=== PATIENT | female | born 1990 ===

== ENCOUNTER 2020-10-27 15:57 | Inpatient (IN) | payer OTHER ==
[2020-10-27] MEDS ORDERED: LACTATED RINGERS 1,000 ML ONE (19:24)
[2020-10-27] MEDS ORDERED: TERBUTALINE 1 MG/1 ML INJ SUB-Q PRN (20:27)
[2020-10-27] MEDS ORDERED: MINERAL OIL 30 ML ORAL LIQD PO PRN (20:27)
[2020-10-27] MEDS ORDERED: ePHEDrine SULFATE 50 MG/1 ML INJ IV PRN (20:27)
[2020-10-27] MEDS ORDERED: OXYTOCIN DRIP 30 UNITS/500 ML BAG IV SCH ×2 (21:00)
[2020-10-27 21:02] LABS: Hematocrit 33.7 % (30.3-42.9); Hemoglobin 11.1 gm/dl (10.1-14.3); Mean Corpuscular HGB Conc 33 % (30-34); Mean Corpuscular Volume 85 fl (79-97); Platelet Count 153 K/mm3 (140-440); Red Blood Count 3.95 M/mm3 (3.65-5.03); Red Cell Distribution Width 14.3 % (13.2-15.2)
[2020-10-27] MEDS ORDERED: LIDOCAINE (2%) 20 MG/1 ML VIAL 20 ML MDV INFILTRATI ONE (21:27)
[2020-10-27] MEDS ORDERED: LACTATED RINGERS 1,000 ML IV SCH (21:30)
--- NOTE | 2020-10-27 21:49 | Anesthesia Consultation ---
Anesthesia Consult and Med Hx Date of service: 10/27/20 - Airway Anesthetic Teeth Evaluation: Good ROM Head & Neck: Adequate Mental/Hyoid Distance: Adequate Mallampati Class: Class II Intubation Access Assessment: Probably Good - Pulmonary Exam CTA: Yes - Cardiac Exam Cardiac Exam: RRR - Pre-Operative Health Status ASA Pre-Surgery Classification: ASA2 Proposed Anesthetic Plan: Epidural - Pulmonary Hx Smoking: No Hx Asthma: No Hx Respiratory Symptoms: No SOB: No COPD: No Home Oxygen Therapy: No Hx Pneumonia: No Hx Sleep Apnea: No - Cardiovascular System Hx Hypertension: No Hx Coronary Artery Disease: No Hx Heart Attack/AMI: No Hx Angina: No Hx Percutaneous Transluminal Coronary Angioplasty (PTCA): No Hx Cardia Arrhythmia: No Hx Pacemaker: No Hx Internal Defibrillator: No Hx Valvular Heart Disease: No Hx Heart Murmur: No Hx Peripheral Vascular Disease: No - Central Nervous System Hx Neuromuscular Disorder: No Hx Seizures: No CVA: No Hx Back Pain: No Hx Psychiatric Problems: No - Gastrointestinal Hx Ulcer: No Hx Gastroesophageal Reflux Disease: No - Endocrine Hx Renal Disease: No Hx End Stage Renal Disease: No Hx Cirrhosis: No Hx Liver Disease: No Hx Insulin Dependent Diabetes: No Hx Non-Insulin Dependent Diabetes: No Hx Thyroid Disease: No Hx Hypothyroidism: No Hx Hyperthyroidism: No - Hematic Hx Anemia: No Hx Sickle Cell Disease: No - Other Systems Hx Alcohol Use: No Hx Substance Use: No Hx Cancer: No Hx Obesity: No
[2020-10-27] MEDS ORDERED: NALOXONE 2 MG/2 ML INJ IV PRN (21:50)
--- NOTE | 2020-10-27 21:50 | Progress Note ---
Labor Epidural - Labor Epidural Start Time: 21:21 Stop Time: 21:32 Performed by:: ANTHONY GARDINER Procedure: Patient is requesting a laboring epidural for laboring pain. Patient IDed, H&P reviewed, all questions and concerns were answered, and consent was signed. Timeout was performed at bedside. Patient in sitting position. Sterile prep and drape was performed. [3] ml of 1% lidocaine skin wheal at L[3]- L [4]. 18- gauge Touhy epidural needle was advanced to loss of resistance with air technique 7cm. Negative CSF negative blood. Epidural catheter advanced to [10] centimeters. [NEGATIVE] Aspiration [NEGATIVE] test dose. Sterile dressing applied. Patient tolerated procedure.
[2020-10-27] MEDS ORDERED: fentaNYL-BUPIV 2 MCG/ML-0.125% 200 MCG/100 ML BAG EPIDURAL SCH (22:00)
[2020-10-27] MEDS: ePHEDrine SULFATE 50 MG/1 ML INJ IV PRN ×2 (22:34→22:59)
--- NOTE | 2020-10-27 22:35 | History and Physical Report ---
History of Present Illness Date of examination: 10/27/20 Date of admission: 10/27/20 15:57 Chief complaint: " I was sent for an induction" History of present illness: 30 y/o female presented to [facility] at 41 wks for an IOL r/t postdates. Pt denied vag bleeding or LOF and admitted to active FM. She initiated her pnc at [facility] at 6 6/7 wks. Pt states she had an uncomplicated preg. Med hx includes anemia. Surgical/social hx is unremar kable. Pt has a daughter whom was born deaf in one ear and a family hx of DM. Pt was admitted to L&D for an IOL. Labs: O pos AB screen neg Rubella I VDRL neg HIV neg, HBsAg neg MSAFP neg Pap wnl, GC/Chly neg UC neg Hgb 10.6:;1 hr GTT 171, 3 hr GTT wnl GBS neg Past History Past Medical History: other (anemia) Past Surgical History: no surgical history Family/Genetic History: diabetes, other (daughter deaf in one ear) Social history: no significant social history - Obstetrical History Expected Date of Delivery: 10/20/20 Actual Gestation: 41 Week(s) 0 Day(s) : 4 Para: 3 Hx # Term Pregnancies: 3 Number of Living Children: 3 Medications and Allergies Allergies Allergy/AdvReac Type Severity Reaction Status Date / Time No Known Allergies Allergy Verified 10/27/20 19:17 Home Medications Medication Instructions Recorded Confirmed Last Taken Type One Daily Tablet 1 tab PO DAILY 10/27/20 10/27/20 10/27/20 History Active Meds: Active Medications Ephedrine Sulfate (Ephedrine Sulfate 50 Mg/1 Ml Inj) 10 mg IV Q2M PRN PRN Reason: Hypotension Oxytocin/Sodium Chloride (Pitocin/Ns 30 Unit/500ml) 30 units in 500 mls @ 2 mls/hr IV TITR AC; Protocol Lactated Ringer's (Lactated Ringers) 1,000 mls @ 125 mls/hr IV DIRECT AC Oxytocin/Sodium Chloride (Pitocin/Ns 30 Unit/500ml) 30 units in 500 mls @ 40 mls/hr IV TITR AC; Protocol Fentanyl/Bupivacaine/Sodium Chlor (Fentanyl-Bupiv 2 Mcg/Ml-0.125%) 200 mcg in 100 mls @ 12 mls/hr EPIDURAL TITR AC; Protocol Mineral Oil (Mineral Oil 30 Ml Oral Liqd) 30 ml PO QHS PRN PRN Reason: Constipation Naloxone HCl (Naloxone 2 Mg/2 Ml Inj) 0.2 mg IV Q5M PRN PRN Reason: Respiratory sedation Terbutaline Sulfate (Terbutaline 1 Mg/1 Ml Inj) 0.25 mg SUB-Q ONCE PRN PRN Reason: Hyperstimulation/Hypertonicity Review of Systems All systems: negative Eyes: deferred Ears, nose, mouth and throat: deferred Breasts: normal Genitourinary: normal appearance - Vital Signs Vital signs: Vital Signs Pulse Pulse Ox 76 99 10/27/20 17:00 10/27/20 17:00 Temp Pulse Resp BP Pulse Ox 98.2 F 81 16 93/54 99 10/27/20 19:30 10/27/20 22:00 10/27/20 19:30 10/27/20 22:00 10/27/20 22:00 - Physical Exam Breasts: Positive: normal Abdomen: Positive: normal appearance, soft, normal bowel sounds, other (gravid) Genitourinary (Female): Positive: normal external genitalia, normal perenium Vulva: both: normal Vagina: Positive: normal moisture Uterus: Positive: enlarged, normal contour, other (gravid) Adnexa: both: normal Anus/Rectum: Positive: normal perianal skin Extremities: Positive: normal - Obstetrical FHR: category 1 Uterine Contraction Monitor Mode: External Cervical Dilatation: 4 Cervical Effacement Percentage: 70 station: -2 Uterine Contraction Frequency (min): q2-3 Uterine Contraction Pattern: Regular Uterine Tone Measurement Phase: Resting Uterine Contraction Intensity: Mild Results Result Diagrams: 10/27/20 20:25 All other labs normal. Assessment and Plan A: IUP @ 41 wks postdates Asymptomatic mild anemia P: Admit to L&D Continuous monitoring Pain med/ Epidural prn Anticipate - Patient Problems (1) Post-dates Current Visit: Yes Status: Acute
--- NOTE | 2020-10-28 01:37 | Procedure Note ---
OB Delivery Note - Delivery Date of Delivery: 10/28/20 Surgeon: JAMIE GANNON Estimated blood loss: <100cc - Vaginal Delivery presentation: vertex Delivery position: OA Intrapartum events: meconium, mult.variable deceleratio Delivery augmentation: pitocin Delivery monitor: external FHT, external uterine Route of delivery: Delivery placenta: spontaneous Delivery cord: nuchal cord, 3 umbilical vessels Episiotomy: none Delivery laceration: 1st degree, other (perineal) Delivery repair: vicryl Anesthesia: epidural Delivery comments: Called to for delivery SVE 10/100%/+1 and pt was pushing. of a live viable male in OA position. Nuchal cord x 1 was reduced over 's head and head and shoulders were delivered with ease. Light mec was noted. Infant was immediately placed on mom's chest for skin to skin bonding while NICU nurse dried and stimulated baby. Delayed cord clamping x 90 sec then cord was double clamped and FOB was allowed to cut the cord. was then carried to infant warmer by NICU nurse for an assess. 8/9. Spontaneous delivery of an intact placenta with 3CV. FF @ U2 with fundal massage and IV Pitocin. An exploration of tears revealed a 1st degree perineal lac which was repaired w/o problems with a 3-0 vicryl on a CT1. EBL approx 50cc. FW 3020 GMS. Mom and baby was left in stable condition with L&D nurse. - Infant A at 1 minute: 8 at 5 minutes: 9 Infant Gender: Male (FW 3020 GMS)
[2020-10-28] MEDS ORDERED: ONDANSETRON 4 MG/2 ML INJ IV PRN (01:39)
[2020-10-28] MEDS ORDERED: PROMETHAZINE 25 MG RECT SUPP PR PRN (01:39)
[2020-10-28] MEDS ORDERED: WITCH HAZEL/ GLYCERIN PAD TP PRN (01:39)
[2020-10-28] MEDS ORDERED: LANOLIN/ZINC/DIMETHICONE (LANSINOH) 7 GM TP PRN (01:39)
[2020-10-28] MEDS ORDERED: MAGNESIUM HYDROXIDE (MOM) ORAL LIQD UDC PO PRN (01:39)
[2020-10-28] MEDS ORDERED: PROMETHAZINE 25 MG TAB PO PRN (01:39)
[2020-10-28] MEDS ORDERED: diphenhydrAMINE 25 MG CAP PO PRN (01:39)
--- NOTE | 2020-10-28 02:04 | Post Anesthesia Evaluation ---
- Post Anesthesia Evaluation Patient Participated: Yes Airway Patent: Yes Stable Respiratory Function: Yes Nausea/Vomiting: No Temp > 96.8F: Yes Pain Manageable: Yes Adequeate Hydration: Yes Anesthesia Complications: No Block Receding Appropriately: Yes Patient on Ventilator: No
[2020-10-28] MEDS: IBUPROFEN 600 MG TAB PO SCH ×4 (04:52→21:55)
[2020-10-28] MEDS ORDERED: PRENATAL ONE DAILY PO SCH (10:00)
[2020-10-28] MEDS: PRENATAL VIT27-FE FUMARATE-FOLIC ACID VIT TAB PO SCH (11:53)
[2020-10-28 14:06] LABS: Hematocrit 32.2 % (30.3-42.9); Hemoglobin 10.8 gm/dl (10.1-14.3)
[2020-10-29] MEDS: IBUPROFEN 600 MG TAB PO SCH ×2 (05:55→13:42)
[2020-10-29] MEDS: PRENATAL VIT27-FE FUMARATE-FOLIC ACID VIT TAB PO SCH (09:09)
[2020-10-29 09:11] VITALS: BP 111/69
[2020-10-29] MEDS ORDERED: FERROUS SULFATE 325 MG TAB PO SCH (10:00)
--- NOTE | 2020-10-29 12:33 | Progress Note ---
Assessment and Plan A: day 1 S/P . Anemia. P: Continue oral iron supplementation. Anticipate discharge home tomorrow if patient continues to do well. Subjective - Subjective Date of service: 10/29/20 Principal diagnosis: day 1 S/P Patient reports: appetite normal, voiding normally, pain well controlled, flatus, ambulating normally, no dizzy ambulation, no nauseated : doing well Objective - Vital Signs Latest vital signs: Vital Signs Temp Pulse Resp BP Pulse Ox 10/29/20 08:27 97.8 F 89 18 111/69 98 10/29/20 01:37 98.6 F 81 18 101/58 99 10/28/20 21:55 18 10/28/20 16:58 98.5 F 75 18 108/67 98 10/28/20 13:11 84 139/92 99 10/28/20 13:03 98.9 F 77 8 L 99/61 98 Intake and Output 10/28/20 10/29/20 10/29/20 23:59 07:59 15:59 Intake Total 1080 240 Balance 1080 240 Intake: Oral 600 Intake, Free Water 480 240 Other: Total, Intake Amount 600 # Voids Void 2 2 # Bowel Movements 1 - Exam Cardiovascular: Present: Regular rate Lungs: Present: Clear to auscultation Abdomen: Present: normal appearance, soft, normal bowel sounds. Absent: distention, tenderness, guarding, rigidity Uterus: Present: normal, firm, fundal height below umbilicus. Absent: bogginess, tenderness Extremities: Present: normal. Absent: tenderness, edema
--- NOTE | 2020-10-29 15:56 | Discharge Summary ---
Providers - Providers Date of Admission: 10/27/20 15:57 Date of discharge: 10/29/20 Attending physician: MOHIT NINA JR, MD Primary care physician: MOHIT NINA JR, MD Hospitalization Reason for admission: induction of labor Delivery: Episiotomy: none Laceration: 1st degree Other procedures: none complications: none Discharge diagnosis: IUP at term delivered [place] baby: male Pertinent studies: Labs Hospital course: Normal course. Condition at discharge: Good Disposition: DC-01 TO HOME OR SELFCARE - Discharge Diagnoses (1) Term delivered Status: Acute (2) Anemia Status: Acute Plan - Provider Discharge Summary Activity: routine, no sex for 6 weeks, no heavy lifting 4 weeks, no strenuous exercise Diet: routine Instructions: routine Additional instructions: Continue taking your vitamins and iron supplements at home. Call your doctor immediately for: * Fever > 100.5 * Heavy vaginal bleeding ( >1 pad per hour) * Severe persistent headache * Shortness of breath * Reddened, hot, painful area to leg or breast - Follow up plan Follow up: MOHIT NINA JR, MD [Primary Care Provider] - 6 Weeks Forms: [facility] Discharge Summary, Discharge Signature Page
== END 2020-10-29 16:21 | disposition home or self-care (01) | DRG 807 ==
LOC: LD 15:57 → OB 10-28 05:24
PROVIDERS: ADMIT Obstetrics & Gynecology; ATTEND Obstetrics & Gynecology
PROC: 10E0XZZ Delivery of Products of Conception, External Approach (ICD-10-PCS; principal; 2020-10-27)
PROC: 3E0R3BZ Introduction of Anesthetic Agent into Spinal Canal, Percutaneous Approach (ICD-10-PCS; 2020-10-27)
PROC: 00HU33Z Insertion of Infusion Device into Spinal Canal, Percutaneous Approach (ICD-10-PCS; 2020-10-27)
PROC: 0HQ9XZZ Repair Perineum Skin, External Approach (ICD-10-PCS; 2020-10-27)
DX: O48.0 Post-term pregnancy (principal); Z37.0 Single live birth; O77.0 Labor and delivery complicated by meconium in amniotic fluid; O76 Abnormality in fetal heart rate and rhythm complicating labor and delivery; O99.02 Anemia complicating childbirth; Z20.822 Contact with and (suspected) exposure to COVID-19; Z3A.41 41 weeks gestation of pregnancy; O70.0 First degree perineal laceration during delivery; Z82.49 Family history of ischemic heart disease and other diseases of the circulatory system; Z79.899 Other long term (current) drug therapy
CPT/HCPCS: 36415; 59025; 85014; 85018; 85027; 86592; 86850; 86900; 86901; 96360; 96361; 96365; 96366; G0378; J7120; U0003